=== PATIENT | female | born 2000 | race Caucasian/White ===

== ENCOUNTER → 2023-07-31 13:00 | Outpatient (REF) | payer BC, SELFPAY | LOC: CPAP 13:00 | PROVIDERS: ATTENDING PHYSICIAN Advanced Practice Midwife | DX: R91.1 Solitary pulmonary nodule (principal); Z12.4 Encounter for screening for malignant neoplasm of cervix | CPT/HCPCS: G0123 ==

== ENCOUNTER → 2023-08-01 09:54 | Outpatient (REF) | payer BC, SELFPAY ==
[2023-08-01 11:21] LABS: Glucose 87 mg/dl (70-99)
[2023-08-01 11:40] LABS: Progesterone 1.01 ng/ml
[2023-08-01 11:55] LABS: TSH Reflex To Free T4 3.46 uIU/ml (0.47-4.68)
[2023-08-01 11:56] LABS: Estradiol 41.6 pg/ml
[2023-08-03 23:53] LABS: Insulin, Random 12 uIU/mL
[2023-08-05 14:33] LABS: FSH 7.7 mIU/ml
== END ==
LOC: REG 09:54
PROVIDERS: ATTENDING PHYSICIAN Advanced Practice Midwife
DX: R91.1 Solitary pulmonary nodule (principal)
CPT/HCPCS: 36415; 82670; 82947; 83001; 83002; 83525; 84144; 84443

== ENCOUNTER → 2024-11-04 16:15 | Outpatient (REF) | payer BC, SELFPAY ==
[2024-11-04 17:38] LABS: % Basophils 1.2 % (0-2); % Eosinophils 1.9 % (0-6); % Immature Granulocytes 0.2 % (0-0.5); % Lymphocytes 28.7 % (20.5-51.1); % Monocytes 9.6 % (1.7-9.3); % Neutrophils 58.4 % (42.2-75.2); Absolute Basophils 0.1 10^3/uL (0-0.2); Absolute Eosinophils 0.1 10^3/uL (0-0.7); Absolute Lymphocytes 1.7 10^3/uL (1.2-3.4); Absolute Monocytes 0.6 10^3/uL (0.1-0.6); Absolute Neutrophils 3.4 10^3/uL (1.4-6.5); Hematocrit 36.5 % (37.0-47.0); Hemoglobin 12.7 g/dL (12.0-16.0); Mean Corp Hgb Conc. 34.8 g/dL (33.0-37.0); Mean Corpuscular Hgb 29.5 pg (27.0-31.0); Mean Corpuscular Volume 84.7 fL (81.0-99.0); Mean Platelet Volume 9.1 fL (7.4-10.4); Nucleated Red Blood Cells % 0 %; Platelet Count 373 10^3/uL (130-400); Red Blood Cell Count 4.31 10^6/uL (4.20-5.40); Red Cell Dist. Width 11.9 % (11.5-14.5); White Blood Cell Count 5.9 10^3/uL (4.8-10.8)
[2024-11-04 17:53] LABS: ALT (SGPT) 16 U/L (0-35); AST (SGOT) 25 U/L (14-36); Albumin 4.9 g/dl (3.5-5.0); Alkaline Phosphatase 77 U/L (38-126); Blood Urea Nitrogen 12 mg/dl (7-17); Calcium 10.1 mg/dl (8.4-10.2); Carbon Dioxide 25 mmol/L (22-30); Chloride 105 mmol/L (98-107); Glucose 77 mg/dl (70-99); Potassium 4.4 mmol/L (3.5-5.1); Sodium 140 mmol/L (135-145); Total Bilirubin 0.5 mg/dl (0.2-1.3); Total Protein 7.3 g/dl (6.3-8.2); eGFR > 60.00
== END ==
LOC: REG 16:15
PROVIDERS: ATTENDING PHYSICIAN Surgery Plastic and Reconstructive Surgery; FAMILY PHYSICIAN Nurse Practitioner Family
DX: C50.412 Malignant neoplasm of upper-outer quadrant of left female breast (principal)
CPT/HCPCS: 36415; 80053; 85025; 93005

== ENCOUNTER → 2024-11-15 08:15 | Outpatient (REF) | payer BC, SELFPAY | LOC: CLAB 08:15 | PROVIDERS: ATTENDING PHYSICIAN Surgery Plastic and Reconstructive Surgery | DX: N62 Hypertrophy of breast (principal); L30.4 Erythema intertrigo; M54.2 Cervicalgia | CPT/HCPCS: 88305 ==